=== PATIENT | female | born 1950 | race African-American/Black ===

== ENCOUNTER → 2017-01-30 | Outpatient (CLI) | payer OTHER ==
[2016-12-12 11:38] VITALS: BP 168/99
== END ==
LOC: LAB 10:17
PROVIDERS: ATTEND Nurse Practitioner Family
DX: Z79.01 Long term (current) use of anticoagulants (principal)
CPT/HCPCS: 36415; 85610

== ENCOUNTER → 2017-02-25 | Outpatient (CLI) | payer OTHER ==
[2016-12-12 11:38] VITALS: BP 168/99
== END ==
LOC: LAB 09:17
PROVIDERS: ATTEND Nurse Practitioner Family
DX: Z79.01 Long term (current) use of anticoagulants (principal)
CPT/HCPCS: 36415; 85610

== ENCOUNTER → 2017-03-27 | Outpatient (CLI) | payer OTHER ==
[2016-12-12 11:38] VITALS: BP 168/99
== END ==
LOC: LAB 07:13
PROVIDERS: ATTEND Nurse Practitioner Family
DX: I48.91 Unspecified atrial fibrillation (principal)
CPT/HCPCS: 36415; 85610

== ENCOUNTER → 2017-04-24 | Outpatient (CLI) | payer OTHER ==
[2016-12-12 11:38] VITALS: BP 168/99
== END ==
LOC: LAB 11:03
PROVIDERS: ATTEND Psychiatry & Neurology Neurology
DX: Z51.81 Encounter for therapeutic drug level monitoring (principal); Z79.01 Long term (current) use of anticoagulants
CPT/HCPCS: 36415; 85610

== ENCOUNTER → 2017-05-20 | Outpatient (CLI) | payer OTHER ==
[2016-12-12 11:38] VITALS: BP 168/99
== END ==
LOC: LAB 09:31
PROVIDERS: ATTEND Nurse Practitioner Family
DX: I48.91 Unspecified atrial fibrillation (principal)
CPT/HCPCS: 36415; 85610

== ENCOUNTER → 2017-06-05 | Outpatient (CLI) | payer OTHER ==
[2016-12-12 11:38] VITALS: BP 168/99
[2017-06-05 10:49] LABS: BASOPHILS # (AUTO) 0.1 X10^3/uL (0.0-0.1); EOSINOPHILS # (AUTO) 0.3 x10^3/uL (0.0-0.2); EOSINOPHILS % (AUTO) 4.2 % (0.9-2.9); HEMATOCRIT 38.4 % (36.0-47.0); HEMOGLOBIN 12.9 g/dL (12.0-16.0); LYMPHOCYTES # (AUTO) 2.2 X10^3/uL (1.3-2.9); MEAN CORPUSCULAR HGB CONC 33.6 g/dL (33.0-35.0); MEAN CORPUSCULAR VOLUME 89.2 fL (80.0-100.0); MEAN PLATELET VOLUME 8.3 fL (7.4-11.0); MONOCYTES # (AUTO) 0.4 x10^3/uL (0.3-0.8); MONOCYTES % (AUTO) 6.3 % (0.0-13.0); NEUTROPHILS # (AUTO) 3.4 x10^3/uL (2.2-4.8); NEUTROPHILS % (AUTO) 53.5 % (42.0-75.0); PLATELET COUNT 160 X10^3/uL (150.0-450.0); RED CELL DISTRIBUTION WIDTH 15.3 % (11.6-16.5); WHITE BLOOD COUNT 6.3 X10^3/uL (3.6-10.0)
[2017-06-05 11:03] LABS: CREATININE,URINE 206.12 mg/dL (29-226); MICROALBUMIN,URINE 9.9 mg/L
[2017-06-05 11:11] LABS: ALANINE AMINOTRANSFERASE 19 Units/L (12-78); ALBUMIN 3.6 g/dL (3.4-5.0); ALKALINE PHOSPHATASE 56 Units/L (46-116); ASPARTATE AMINO TRANSFERASE 16 Units/L (15-37); BLOOD UREA NITROGEN 21 mg/dL (7-18); CALCIUM 8.7 mg/dL (8.5-10.1); CARBON DIOXIDE 31.1 mmol/L (21-32); CHLORIDE 108 mmol/L (98-107); CHOLESTEROL 213 mg/dL (0-200); CREATININE 1.21 mg/dL (0.55-1.02); GLUCOSE 92 mg/dL (65-99); HDL CHOLESTEROL 105 mg/dL (40-60); SODIUM 143 mmol/L (136-145); TOTAL PROTEIN 7.6 g/dL (6.4-8.2); TRIGLYCERIDES 55 mg/dL (0-150); eGFR BLACK RACES 57 (>60); eGFR NON BLACK RACES 47 (>60)
== END | disposition home or self-care (01) | DRG 293 ==
LOC: LAB 10:17
PROVIDERS: ATTEND Nurse Practitioner Family
DX: I13.0 Hypertensive heart and chronic kidney disease with heart failure and stage 1 through stage 4 chronic kidney disease, or unspecified chronic kidney disease (principal); N18.3 Chronic kidney disease, stage 3 (moderate); E78.4 Other hyperlipidemia
CPT/HCPCS: 36415; 80053; 80061; 82043; 84100; 85025

== ENCOUNTER → 2017-06-11 | Outpatient (CLI) | payer OTHER ==
[2016-12-12 11:38] VITALS: BP 168/99
--- NOTE | 2017-06-11 15:06 | MG ---
HISTORY: SCREENING Comparison: Multiple priors dating back to August 30, 2010 FINDINGS: Bilateral CC and MLO projections of the right and left breast were obtained. Heterogeneously dense fibroglandular tissue is seen to be present without suspicious interval change. No significant arch itectural distortion, mass or clustered microcalcifications can be observed to suggest malignancy. No skin thickening or nipple retraction is appreciated. No pathological lymphadenopathy can be magui ntified. There are stable benign appearing bilateral axillary lymph nodes noted. IMPRESSION: NO RADIOGRAPHIC EVIDENCE OF MALIGNANCY. ACR CATEGORY I - NEGATIVE EXAM. FOLLOW-UP EXAM 1 YEAR. Diagnostic CAD was utilized and reviewed. * 0 (ZERO) - ASSESSMENT INCOMPLETE; ADDITIONAL IMAGING IS NEEDED. * 1/ (ONE) - NEGATIVE. * 2/II (TWO) - BENIGN FINDINGS. * 3/III (THREE) - PROBABLY BENIGN FINDING; SHORT INTERVAL FOLLOW-UP SUGGESTED. * 4/IV (FOUR) - SUSPICIOUS ABNORMALITY; BIOPSY SHOULD BE CONSIDERED. * 5/V (FIVE) - HIGHLY SUSPICIOUS OF MALIGNANCY; BIOPSY SHOULD BE PERFORMED. A NEGATIVE X-RAY REPORT SHOULD NOT DELAY BIOPSY IF A DOMINANT OR CLINICALLY SUSPICIOUS MASS IS PRESENT; 4 TO 8 PERCENT OF CANCERS ARE NOT IDENTIFIED BY X-RAY. A NEG ATIVE REPORT MAY REINFORCE THE CLINICAL IMPRESSION. ADENOSIS AND DENSE BREASTS MAY OBSCURE AN UNDER LYING NEOPLASM. Reported By:
== END ==
LOC: RAD 10:14
PROVIDERS: ATTEND Nurse Practitioner Family
DX: Z12.31 Encounter for screening mammogram for malignant neoplasm of breast (principal)
CPT/HCPCS: 77067

== ENCOUNTER → 2017-06-19 | Outpatient (CLI) | payer OTHER ==
[2016-12-12 11:38] VITALS: BP 168/99
== END | disposition home or self-care (01) | DRG 950 ==
LOC: LAB 13:17
PROVIDERS: ATTEND Nurse Practitioner Family
DX: Z51.81 Encounter for therapeutic drug level monitoring (principal); Z79.01 Long term (current) use of anticoagulants
CPT/HCPCS: 36415; 85610

== ENCOUNTER → 2017-07-12 | Outpatient (CLI) | payer OTHER ==
[2016-12-12 11:38] VITALS: BP 168/99
== END ==
LOC: LAB 09:31
PROVIDERS: ATTEND Nurse Practitioner Family
DX: Z51.81 Encounter for therapeutic drug level monitoring (principal)
CPT/HCPCS: 36415; 85610

== ENCOUNTER → 2017-09-05 | Outpatient (CLI) | payer OTHER ==
[2016-12-12 11:38] VITALS: BP 168/99
[2017-09-05 10:10] LABS: ALANINE AMINOTRANSFERASE 16 Units/L (12-78); ALBUMIN 3.4 g/dL (3.4-5.0); ALKALINE PHOSPHATASE 62 Units/L (46-116); ASPARTATE AMINO TRANSFERASE 18 Units/L (15-37); BLOOD UREA NITROGEN 20 mg/dL (7-18); CALCIUM 8.7 mg/dL (8.5-10.1); CARBON DIOXIDE 27.8 mmol/L (21-32); CHLORIDE 107 mmol/L (98-107); CREATININE 1.31 mg/dL (0.55-1.02); SODIUM 141 mmol/L (136-145); TOTAL PROTEIN 7.1 g/dL (6.4-8.2); eGFR BLACK RACES 52 (>60); eGFR NON BLACK RACES 43 (>60)
[2017-09-05 10:17] LABS: BASOPHILS % (AUTO) 0.7 % (0.2-1.0); EOSINOPHILS # (AUTO) 0.3 x10^3/uL (0.0-0.2); EOSINOPHILS % (AUTO) 4.1 % (0.9-2.9); HEMOGLOBIN 12.7 g/dL (12.0-16.0); LYMPHOCYTES # (AUTO) 1.8 X10^3/uL (1.3-2.9); LYMPHOCYTES % (AUTO) 29.8 % (21.0-51.0); MEAN CORPUSCULAR HEMOGLOBIN 29.3 pg (27.0-34.0); MEAN CORPUSCULAR HGB CONC 32.5 g/dL (33.0-35.0); MEAN CORPUSCULAR VOLUME 89.9 fL (80.0-100.0); MEAN PLATELET VOLUME 8.6 fL (7.4-11.0); MONOCYTES # (AUTO) 0.5 x10^3/uL (0.3-0.8); MONOCYTES % (AUTO) 8.4 % (0.0-13.0); NEUTROPHILS # (AUTO) 3.5 x10^3/uL (2.2-4.8); PLATELET COUNT 146 X10^3/uL (150.0-450.0); RED BLOOD COUNT 4.34 X10^6/uL (3.5-5.4); RED CELL DISTRIBUTION WIDTH 14.4 % (11.6-16.5); WHITE BLOOD COUNT 6.1 X10^3/uL (3.6-10.0)
== END ==
LOC: LAB 09:17
PROVIDERS: ATTEND Nurse Practitioner Adult Health
DX: I10 Essential (primary) hypertension (principal)
CPT/HCPCS: 36415; 80053; 85025

== ENCOUNTER → 2017-09-12 | Outpatient (CLI) | payer OTHER ==
[2016-12-12 11:38] VITALS: BP 168/99
== END ==
LOC: LAB 09:19
PROVIDERS: ATTEND Nurse Practitioner Family
DX: Z79.01 Long term (current) use of anticoagulants (principal)
CPT/HCPCS: 36415; 85610

== ENCOUNTER → 2017-10-22 | Outpatient (CLI) | payer OTHER ==
[2016-12-12 11:38] VITALS: BP 168/99
== END ==
LOC: LAB 09:07
PROVIDERS: ATTEND Nurse Practitioner Family
DX: Z51.81 Encounter for therapeutic drug level monitoring (principal)
CPT/HCPCS: 36415; 85610

== ENCOUNTER → 2017-10-31 | Outpatient (CLI) | payer OTHER ==
[2016-12-12 11:38] VITALS: BP 168/99
== END ==
LOC: RAD 13:25
PROVIDERS: ATTEND Physician Assistant
DX: R01.1 Cardiac murmur, unspecified (principal)
CPT/HCPCS: 93306

== ENCOUNTER → 2017-12-16 | Outpatient (CLI) | payer OTHER ==
[2016-12-12 11:38] VITALS: BP 168/99
[2017-12-16 10:32] LABS: BASOPHILS # (AUTO) 0.1 X10^3/uL (0.0-0.1); BASOPHILS % (AUTO) 0.8 % (0.2-1.0); EOSINOPHILS # (AUTO) 0.1 x10^3/uL (0.0-0.2); EOSINOPHILS % (AUTO) 1.8 % (0.9-2.9); HEMATOCRIT 38.8 % (36.0-47.0); HEMOGLOBIN 12.9 g/dL (12.0-16.0); LYMPHOCYTES # (AUTO) 1.9 X10^3/uL (1.3-2.9); LYMPHOCYTES % (AUTO) 29.6 % (21.0-51.0); MEAN CORPUSCULAR HEMOGLOBIN 29.1 pg (27.0-34.0); MEAN CORPUSCULAR HGB CONC 33.2 g/dL (33.0-35.0); MEAN CORPUSCULAR VOLUME 87.9 fL (80.0-100.0); MEAN PLATELET VOLUME 8.3 fL (7.4-11.0); MONOCYTES # (AUTO) 0.4 x10^3/uL (0.3-0.8); MONOCYTES % (AUTO) 6.1 % (0.0-13.0); NEUTROPHILS # (AUTO) 3.9 x10^3/uL (2.2-4.8); NEUTROPHILS % (AUTO) 61.7 % (42.0-75.0); PLATELET COUNT 187 X10^3/uL (150.0-450.0); RED BLOOD COUNT 4.42 X10^6/uL (3.5-5.4); RED CELL DISTRIBUTION WIDTH 14.9 % (11.6-16.5); WHITE BLOOD COUNT 6.4 X10^3/uL (3.6-10.0)
[2017-12-16 10:41] LABS: BLOOD UREA NITROGEN 15 mg/dL (7-18); CALCIUM 8.9 mg/dL (8.5-10.1); CARBON DIOXIDE 27.7 mmol/L (21-32); CHLORIDE 107 mmol/L (98-107); CREATININE 1.06 mg/dL (0.55-1.02); SODIUM 140 mmol/L (136-145); eGFR BLACK RACES > 60 (>60); eGFR NON BLACK RACES 55 (>60)
== END ==
LOC: LAB 09:45
PROVIDERS: ATTEND Internal Medicine Cardiovascular Disease
DX: I48.91 Unspecified atrial fibrillation (principal)
CPT/HCPCS: 36415; 80048; 85025

== ENCOUNTER → 2018-02-13 | Outpatient (CLI) | payer OTHER ==
[2016-12-12 11:38] VITALS: BP 168/99
[2018-02-13 08:55] LABS: BASOPHILS # (AUTO) 0.1 X10^3/uL (0.0-0.1); EOSINOPHILS # (AUTO) 0.2 x10^3/uL (0.0-0.2); EOSINOPHILS % (AUTO) 2.7 % (0.9-2.9); HEMATOCRIT 39.7 % (36.0-47.0); HEMOGLOBIN 13.2 g/dL (12.0-16.0); LYMPHOCYTES # (AUTO) 1.9 X10^3/uL (1.3-2.9); LYMPHOCYTES % (AUTO) 31.3 % (21.0-51.0); MEAN CORPUSCULAR HEMOGLOBIN 29.2 pg (27.0-34.0); MEAN CORPUSCULAR HGB CONC 33.2 g/dL (33.0-35.0); MEAN CORPUSCULAR VOLUME 88.2 fL (80.0-100.0); MEAN PLATELET VOLUME 8.3 fL (7.4-11.0); MONOCYTES # (AUTO) 0.4 x10^3/uL (0.3-0.8); MONOCYTES % (AUTO) 5.9 % (0.0-13.0); NEUTROPHILS # (AUTO) 3.6 x10^3/uL (2.2-4.8); NEUTROPHILS % (AUTO) 59.1 % (42.0-75.0); PLATELET COUNT 177 X10^3/uL (150.0-450.0); RED BLOOD COUNT 4.51 X10^6/uL (3.5-5.4); RED CELL DISTRIBUTION WIDTH 14.4 % (11.6-16.5); WHITE BLOOD COUNT 6.1 X10^3/uL (3.6-10.0)
[2018-02-13 09:02] LABS: ALBUMIN 3.6 g/dL (3.4-5.0); BLOOD UREA NITROGEN 12 mg/dL (7-18); CALCIUM 8.5 mg/dL (8.5-10.1); CARBON DIOXIDE 25.5 mmol/L (21-32); CHLORIDE 107 mmol/L (98-107); CHOL/HDL RATIO 2.4 (0.0-5.0); CHOLESTEROL 225 mg/dL (0-200); CREATININE 1.05 mg/dL (0.55-1.02); HDL CHOLESTEROL 94 mg/dL (40-60); PHOSPHORUS 3.1 mg/dL (2.6-4.7); SODIUM 144 mmol/L (136-145); TRIGLYCERIDES 50 mg/dL (0-150); URIC ACID 4.4 mg/dL (2.6-6.0); eGFR BLACK RACES > 60 (>60); eGFR NON BLACK RACES 55 (>60)
== END ==
LOC: LAB 08:18
PROVIDERS: ATTEND Internal Medicine
DX: I12.9 Hypertensive chronic kidney disease with stage 1 through stage 4 chronic kidney disease, or unspecified chronic kidney disease (principal); N18.3 Chronic kidney disease, stage 3 (moderate)
CPT/HCPCS: 36415; 80061; 80069; 84550; 85025

== ENCOUNTER 2018-03-25 15:07 | Emergency (ER) | payer OTHER ==
[2018-03-25 15:12] VITALS: BP 159/93; BMI 32.7
--- NOTE | 2018-03-25 17:51 | DR.URIAD ---
HPI - Time Seen Time seen: 18:00 - PCP Primary Care Physician: tariq - Complaint Chief Complaint Doctors Comments: Patient admits to cough and congestion for five days. Denies fever, vomiting or diarrhea. Chief Complaint:: pt stated she has been cold and hot she stated her sinuses might be bad. - Source History Provided: Patient - Mode of Arrival Mode of Arrival: Ambulatory - Timing Onset of Chief Complaint: 03/22/18 PMH - PMH Past Medical History: Yes Past Medical History: Hypertension Past Surgical History: Yes Surgical History: Hysterectomy - Family History History of Family Medical Conditions: Yes Family Medical History: Diabetes Mellitus, Cancer, Hypertension - Social History Does patient currently use any type of tobacco product: No Have you used tobacco products in the last 12 months: No Type of Tobacco Use: None Does any household member use tobacco: No Alcohol Use: None Do you use any recreational Drugs:: No Lives With: Family Lives Where: Home - infectious screening In the last 2 months have you had wt loss of >10#?: NO Have you had fever, night sweats or hemotysis?: No Have you traveled outside the country in the last 6 months?: No Isolation: Standard ROS - Review of Systems Eyes: No Symptoms Reported ENTM: No Symptoms Reported Respiratoy: Dry Cough Cardiovascular: No Symptoms Reported Gastrointestinal/Abdominal: No Symptoms Reported Genitourinary: No Symptoms Reported Neurological: No Symptoms Reported Musculoskeletal: No Symptoms Reported Integumentary: No Symptoms Reported Hematologic/Lymphatic: No Symptoms Reported Endocrine: No Symptoms Reported Psychiatric: No Symptoms Reported All Other Systems: Reviewed and Negative PE - Vital Signs Vitals: Temperature 99.6 F Pulse Rate 79 Respiratory Rate 16 Blood Pressure [Left Arm] 133/95 Blood Pressure 159/93 O2 Sat by Pulse Oximetry 99 - General Limitations: No Limitations General Appearance: Alert, In No Apparent Distress - Head Head Exam: Normal Inspection, Atraumatic - Eyes Eye exam: Normal Appearance, PERRL, EOMI - ENT ENT Exam: Normal Exam External Ear Exam: Normal External Inspection TM/Canal Exam: Bilateral Normal Nose Exam: Other (rhinorrhea) Nasal Speculum Exam: Bilateral Normal Mouth Exam: Normal Inspection Throat Exam: Normal Inspection - Neck Neck Exam: Normal Inspection, Full ROM - Chest Chest Inspection: Normal Inspection - Respiratory Respiratory Exam: Normal Lung Sounds Bilat Respiratory Exam: Bilateral Clear to Auscultation - Cardiovascular Cardiovascular Exam: Regular Rate, Normal Rhythm - Abdominal Exam Abdominal Exam: Normal Inspection Abdominal Tenderness: negative: RUQ, RLQ, LUQ, LLQ, Epigastrium, Suprapubic, Diffuse, Mild, Moderate, Severe, Other - Extremeties Extremities Exam: Normal Inspection, Full ROM - Back Back Exam: Normal Inspection, Full ROM - Neurologic Neurological Exam: Alert, Oriented X3, CN II-XII Intact - Psychiatric Psychiatric Exam: Normal Affect - Skin Skin Exam: Warm, Dry, Intact Course - Reevaluation 1st: Unchanged - Diagnosis Discharge Problem: Upper respiratory infection Qualifiers: URI type: unspecified viral URI Qualified Code(s): J06.9 - Acute upper respiratory infection, unspecified - Discharge Plan Condition: Stable - Follow ups/Referrals Follow ups/Referrals: JOURDAN HARDY [Primary Care Provider] - 3 days - Instructions
== END 2018-03-25 18:26 | disposition home or self-care (01) ==
LOC: ER 15:15
DX: J06.9 Acute upper respiratory infection, unspecified (principal)
CPT/HCPCS: 99281; 99282

== ENCOUNTER 2019-01-13 13:31 | Observation (INO) ==
[2019-01-13] MEDS ORDERED: DECADRON INJ IM ONE (14:10)
[2019-01-13] MEDS ORDERED: VISTARIL PO ONE ×2 (14:10→14:15)
[2019-01-13] MEDS ORDERED: DECADRON INJ ONE (14:14)
--- NOTE | 2019-01-13 14:19 | DR.ALLERGY ---
HPI Time Seen Time Seen by Provider: 01/13/19 14:10 PCP Primary Care Physician: Ruby HARDY HPI Comment HPI Comment: 68 YR OLD FEMALE WITH HISTORY OF HYPERTENSION, DYSLIPIDEMIA AND ARTHRITIS PRESENTS WITH FACIAL AND UPPER LIP AND TONGUE SWELLING WHICH SHE NOTED WHEN SHE WOKE UP THIS MORNING. Complaint/Symptoms Chief Complaint Doctors Comments: FACIAL AND UPPER LIP SWELLING. Chief Complaint:: PT C/O FACIAL SWELLING (TOP LIP AND TOUNGE). PT STATES SHE WOKE UP WITH THE SWELLING THIS MORNING. PT STATES HER TOUNGE IS SWELLING SHE FEELS LIKE IT IS STAYING THE SAME. Source History Provided: Patient Mode of Arrival Mode of Arrival: Ambulatory Timing Onset of Chief Complaint: 01/13/19 Came on: Suddenly Context Exposed to: Unknown Developed: Facial swelling and Other (comment) (TONGUE SWOLLEN.) History of: Prior similar episodes (SIMILAR EPISODE PREVIOUSLY DUE TO LISINOPRIL.) Location Location: Face, Lips (UPPER LIP.) and Tongue Severity SOB: None Swallowing: Moderate Rash: None Pruritis: None Modifying factors Improves: Nothing Associated signs and symptoms Associated signs and symptoms: None PMH PMH Past Medical History: Yes Past Medical History: Arthritis, CHF, Dyslipidemia and Hypertension Past Surgical History: Yes Surgical History: Hysterectomy Family History History of Family Medical Conditions: Yes Family Medical History: Diabetes Mellitus, Cancer, Coronary Artery Disease and Hypertension Social History Does any household member use tobacco: No Alcohol Use: None Do you use any recreational Drugs:: No Lives With: Family Lives Where: Home infectious screening In the last 2 months have you had wt loss of >10#?: NO Have you had fever, night sweats or hemotysis?: No Have you traveled outside the country in the last 6 months?: No Isolation: Standard ROS Review of Systems Constitutional: No Symptoms Reported Eyes: Other (FACE SWOLLEN AND RT PERIORBITAL EDEMA.) ENTM: No Symptoms Reported and Mouth Pain (UPPER LIP SWOLLEN.) Respiratoy: No Symptoms Reported Cardiovascular: No Symptoms Reported Gastrointestinal/Abdominal: No Symptoms Reported Genitourinary: No Symptoms Reported Neurological: No Symptoms Reported Musculoskeletal: No Symptoms Reported Integumentary: No Symptoms Reported Hematologic/Lymphatic: No Symptoms Reported Endocrine: No Symptoms Reported Psychiatric: No Symptoms Reported All Other Systems: Reviewed and Negative PE Vitals Vital Signs: Temp Pulse Pulse Resp BP BP Pulse Ox 01/14/19 08:00 98.1 F 76 18 123/75 97 03/06/19 04:00 97.6 F 75 20 111/60 94 L 01/14/19 00:00 97.9 F 96 H 20 140/73 98 01/13/19 20:45 98.2 F 107 H 20 163/91 94 L 01/13/19 20:05 99 H 18 154/90 98 01/13/19 19:30 91 H 162/92 96 01/13/19 19:00 77 143/86 95 01/13/19 18:49 96 H 158/96 95 01/13/19 17:30 85 20 181/87 100 01/13/19 13:31 97.6 F 99 H 20 135/92 97 10/20/18 14:58 151/94 151/94 Constitutional Limitations: No Limitations General Appearance: Alert and In No Apparent Distress Head Head Exam: Other (FACIAL SWELLING, RT GREATED THAN LEFT.) Eyes Eye exam: Other (PERIORBITAL EDEMA RR GREATER THAN LT.) ENT ENT Exam: Normal External Ear Exam and Other (TONGUE SWOLLEN, THROAT NO VISIBLE SWELLING.) Mouth Exam: Normal Inspection Throat Exam: Normal Inspection Neck Neck Exam: Normal Inspection Chest Chest Inspection: Normal Inspection Respiratory Respiratory Exam: Normal Lung Sounds Bilat Respiratory Exam: Bilateral: Rhonchi and Lower: Rhonchi Cardiovascular Cardiovascular Exam: Regular Rate and Normal Rhythm Abdominal Exam Abdominal Exam: Normal Inspection, Normal Bowel Sounds and Soft Extremities Extremities Exam: Normal Inspection and Edema (ONE PLUS EDEMA.) Back Back Exam: Normal Inspection Neurologic Neurological Exam: Alert and Oriented X3 Psychiatric Psychiatric Exam: Normal Affect and Normal Mood Skin Skin Exam: Warm, Dry, Intact and Normal Color MDM Differential Diagnosis Differential diagnosis: Angioedema (ALLERGIC REACTION.) COURSE Treatment Treatment: SEE ORDERS. ROR Labs Reviewed Laboratory Results Reviewed?: Yes Result Diagrams: 01/14/19 04:36 01/14/19 04:36 Laboratory: WBC 8.4 X10^3/uL (3.6-10.0) 01/14/19 04:36 RBC 4.71 X10^6/uL (3.5-5.4) 01/14/19 04:36 Hgb 14.0 g/dL (12.0-16.0) 01/14/19 04:36 Hct 42.9 % (36.0-47.0) 01/14/19 04:36 MCV 91.0 fL (80.0-100.0) 01/14/19 04:36 MCH 29.7 pg (27.0-34.0) 01/14/19 04:36 MCHC 32.6 g/dL (33.0-35.0) L 01/14/19 04:36 RDW 15.1 % (11.6-16.5) 01/14/19 04:36 Plt Count 212 X10^3/uL (150.0-450.0) 01/14/19 04:36 MPV 8.6 fL (7.4-11.0) 01/14/19 04:36 Neut % (Auto) 86.9 % (42.0-75.0) H 01/14/19 04:36 Lymph % (Auto) 12.0 % (21.0-51.0) L 01/14/19 04:36 [place] % (Auto) 0.8 % (0.0-13.0) 01/14/19 04:36 Eos % (Auto) 0.0 % (0.9-2.9) L 01/14/19 04:36 Baso % (Auto) 0.3 % (0.2-1.0) 01/14/19 04:36 Neut # (Auto) 7.3 x10^3/uL (2.2-4.8) H 01/14/19 04:36 Lymph # (Auto) 1.0 X10^3/uL (1.3-2.9) L 01/14/19 04:36 [place] # (Auto) 0.1 x10^3/uL (0.3-0.8) L 01/14/19 04:36 Eos # (Auto) 0.0 x10^3/uL (0.0-0.2) 01/14/19 04:36 Baso # (Auto) 0.0 X10^3/uL (0.0-0.1) 01/14/19 04:36 Absolute Nucleated RBC 0.1 /100WBC 01/14/19 04:36 INR Target Range - 01/13/19 20:24 INR 1.21 (0.8-1.3) 01/13/19 20:24 APTT 32.4 SECONDS (22.9-36.5) 01/13/19 20:24 PTT Comment - 01/13/19 20:24 Sodium 141 mmol/L (136-145) 01/14/19 04:36 Corrected Sodium 142 mmol/L (136-145) 01/14/19 04:36 Potassium 4.0 mmol/L (3.5-5.1) 01/14/19 04:36 Chloride 105 mmol/L (98-107) 01/14/19 04:36 Carbon Dioxide 26.6 mmol/L (21-32) 01/14/19 04:36 BUN 21 mg/dL (7-18) H 01/14/19 04:36 Creatinine 1.34 mg/dL (0.55-1.02) H 01/14/19 04:36 Est GFR (MDRD) Af Amer 50 (>60) L 01/14/19 04:36 Est GFR (MDRD) Non-Af 42 (>60) L 01/14/19 04:36 Glucose 137 mg/dL (65-99) H 01/14/19 04:36 Calcium 9.1 mg/dL (8.5-10.1) 01/14/19 04:36 Corrected Calcium TNP 01/14/19 04:36 Total Bilirubin 0.30 mg/dL (0.2-1.0) 01/14/19 04:36 AST 16 Units/L (15-37) 01/14/19 04:36 ALT 19 Units/L (12-78) 01/14/19 04:36 Alkaline Phosphatase 83 Units/L (46-116) 01/14/19 04:36 Total Protein 7.7 g/dL (6.4-8.2) 01/14/19 04:36 Albumin 3.4 g/dL (3.4-5.0) 01/14/19 04:36 Globulin 4.3 g/dL (2.5-4.5) 01/14/19 04:36 Albumin/Globulin Ratio 0.8 Ratio (1.1-2.1) L 01/14/19 04:36 Triglycerides 17 mg/dL (0-150) 01/14/19 04:36 Cholesterol 205 mg/dL (0-200) H 01/14/19 04:36 LDL Cholesterol, Calc 84 mg/dL (0-100) 01/14/19 04:36 HDL Cholesterol 118 mg/dL (40-60) H 01/14/19 04:36 Cholesterol/HDL Ratio 1.7 (0.0-5.0) 01/14/19 04:36
[2019-01-13] MEDS ORDERED: BENADRYL INJ 50 MG VIAL IVP ONE (15:36)
[2019-01-13] MEDS ORDERED: BENADRYL INJ 50 MG VIAL ONE (15:38)
[2019-01-13] MEDS ORDERED: ZANTAC INJ 50 MG in NS 50 ML IV 50 ML IV ONE (16:58)
[2019-01-13] MEDS ORDERED: SOLU-Medrol 125 MG VIAL IVP ONE (16:58)
[2019-01-13] MEDS ORDERED: SOLU-Medrol 125 MG VIAL ONE (17:01)
[2019-01-13] MEDS ORDERED: ZANTAC INJ ONE (17:01)
[2019-01-13] MEDS ORDERED: NS 100 ML IV 100 ML IV ONE (17:10)
[2019-01-13 20:34] LABS: BASOPHILS % (AUTO) 0.3 % (0.2-1.0); EOSINOPHILS % (AUTO) 0.1 % (0.9-2.9); HEMOGLOBIN 14.5 g/dL (12.0-16.0); LYMPHOCYTES # (AUTO) 0.7 X10^3/uL (1.3-2.9); LYMPHOCYTES % (AUTO) 9.2 % (21.0-51.0); MEAN CORPUSCULAR HEMOGLOBIN 29.9 pg (27.0-34.0); MEAN CORPUSCULAR HGB CONC 33.6 g/dL (33.0-35.0); MEAN PLATELET VOLUME 8.3 fL (7.4-11.0); MONOCYTES # (AUTO) 0 x10^3/uL (0.3-0.8); MONOCYTES % (AUTO) 0.5 % (0.0-13.0); NEUTROPHILS # (AUTO) 6.7 x10^3/uL (2.2-4.8); NEUTROPHILS % (AUTO) 89.9 % (42.0-75.0); PLATELET COUNT 197 X10^3/uL (150.0-450.0); RED BLOOD COUNT 4.84 X10^6/uL (3.5-5.4); RED CELL DISTRIBUTION WIDTH 15.1 % (11.6-16.5); WHITE BLOOD COUNT 7.4 X10^3/uL (3.6-10.0)
[2019-01-13 20:44] LABS: ALANINE AMINOTRANSFERASE 20 Units/L (12-78); ALBUMIN 3.8 g/dL (3.4-5.0); ALKALINE PHOSPHATASE 88 Units/L (46-116); ASPARTATE AMINO TRANSFERASE 19 Units/L (15-37); BLOOD UREA NITROGEN 16 mg/dL (7-18); CALCIUM 9.2 mg/dL (8.5-10.1); CARBON DIOXIDE 25.9 mmol/L (21-32); CHLORIDE 104 mmol/L (98-107); COR NA(FOR HYPERGLY) 142 mmol/L (136-145); CREATININE 1.19 mg/dL (0.55-1.02); SODIUM 141 mmol/L (136-145); TOTAL PROTEIN 8.2 g/dL (6.4-8.2); eGFR NON BLACK RACES 48 (>60)
[2019-01-13] MEDS: NS 1000 ML 1,000 ML IV SCH (21:40)
[2019-01-13 21:56] VITALS: BMI 32.2
[2019-01-14 05:25] LABS: BASOPHILS % (AUTO) 0.3 % (0.2-1.0); HEMATOCRIT 42.9 % (36.0-47.0); MEAN CORPUSCULAR HEMOGLOBIN 29.7 pg (27.0-34.0); MEAN CORPUSCULAR HGB CONC 32.6 g/dL (33.0-35.0); MEAN PLATELET VOLUME 8.6 fL (7.4-11.0); MONOCYTES # (AUTO) 0.1 x10^3/uL (0.3-0.8); MONOCYTES % (AUTO) 0.8 % (0.0-13.0); NEUTROPHILS # (AUTO) 7.3 x10^3/uL (2.2-4.8); NEUTROPHILS % (AUTO) 86.9 % (42.0-75.0); PLATELET COUNT 212 X10^3/uL (150.0-450.0); RED BLOOD COUNT 4.71 X10^6/uL (3.5-5.4); RED CELL DISTRIBUTION WIDTH 15.1 % (11.6-16.5); WHITE BLOOD COUNT 8.4 X10^3/uL (3.6-10.0)
[2019-01-14 05:47] LABS: ALANINE AMINOTRANSFERASE 19 Units/L (12-78); ALBUMIN 3.4 g/dL (3.4-5.0); ALKALINE PHOSPHATASE 83 Units/L (46-116); ASPARTATE AMINO TRANSFERASE 16 Units/L (15-37); BLOOD UREA NITROGEN 21 mg/dL (7-18); CALCIUM 9.1 mg/dL (8.5-10.1); CARBON DIOXIDE 26.6 mmol/L (21-32); CHLORIDE 105 mmol/L (98-107); CHOL/HDL RATIO 1.7 (0.0-5.0); CHOLESTEROL 205 mg/dL (0-200); COR NA(FOR HYPERGLY) 142 mmol/L (136-145); CREATININE 1.34 mg/dL (0.55-1.02); HDL CHOLESTEROL 118 mg/dL (40-60); SODIUM 141 mmol/L (136-145); TOTAL PROTEIN 7.7 g/dL (6.4-8.2); TRIGLYCERIDES 17 mg/dL (0-150); eGFR NON BLACK RACES 42 (>60)
[2019-01-14] MEDS: NS 1000 ML 1,000 ML IV SCH ×2 (19:16→23:03)
--- NOTE | 2019-01-14 20:12 | DR.H&P ---
H&P - History & Physical for Day of: H&P Date: 01/13/19 - Chief Complaint Chief Complaint: FACIAL SWELLING - History of Present Illness History of Present Illness: IS A 68 YEAR OLD PATIENT OF [facility] WHO PRESENTED TO THE ER WITH COMPLAINTS OF FACIAL SWELLING. SHE REPORTS WAKING UP WITH THE SWELLING THIS MORNING. SHE DENIES IMPROVEMENT THROUGHOUT THE DAY. SHE IS NOTED WITH TOP LIP AND TONGUE SWELLING WELL PERIORBITAL EDEMA. SHE REPORTS A HISTORY OF HYPERTENSION, DYSLIPIDEMIA, AND ARTHRITIS. SHE HAS HAD AN EPISODE LIKE THIS BEFORE WHEN SHE WAS TAKING LISINOPRIL. SHE DENIES SHORTNESS OF BREATH. ON ARRIVAL, VITALS WERE 97.6-99-20-97%-135/92. LABS WERE OBTAINED. ABNORMAL LAB VALUES INCLUDE THE FOLLOWING: CREATININE 1.19, GLUCOSE 128. SHE WAS GIVEN ZANTAC 50MG IV X 1, SOLU-MEDROL 125MG IV X 1, BENADRYL 50MG IV X 1, VISTARIL 25MG PO X 1, ANS DECADRON 4MG IM X 1 IN THE ER. SHE WAS ADMITTED FOR FURTHER EVALUATION OF ANGIOEDEMA AND ALLERGIC REACTION. SHE WAS STARTED ON NORMAL SALINE AT [facility]. WE PLAN TO FOLLOW UP WITH AM LABS AND CONTINUE TO MONITOR. - Past Medical History Past Medical History: Hypertension, Dyslipidemia, Arthritis, CHF - Past Surgical History Surgical History: Hysterectomy - Family History Family Medical History: Diabetes Mellitus, Cancer, Coronary Artery Disease, Hypertension - Social History Does any household member use tobacco: No Alcohol Use: None Drug Use: None - Medications Home Medications: MRS AQUINO Allergy (Unknown, Uncoded 01/13/19 21:57) TOMATO Allergy (Unknown, Uncoded 01/13/19 21:57) CONTINUE taking the following medications multivitamin [Multiple Vitamins] 1 tab PO QDAY 01/14/19 [History] warfarin 4 mg PO QDAY 01/14/19 [History] - Review of Systems Constitutional: No Symptoms Reported Eyes: See HPI (SWELLING ) ENT: See HPI, Other (TONGUE AND LIP SWELLING ) Respiratory: No Symptoms Reported Cardiovascular: No Symptoms Reported, Edema (FACIAL EDEMA) Gastrointestinal: No Symptoms Reported Genitourinary: No Symptoms Reported Musculoskeletal: No Symptoms Reported Skin: No Symptoms Reported Neurological: No Symptoms Reported - Physical Exam Vital Signs: Temperature 97.7 F Pulse Rate [Left Radial] 87 Pulse Rate 99 Respiratory Rate 20 Blood Pressure [Left Arm] 135/79 Blood Pressure 135/92 O2 Sat by Pulse Oximetry 98 Oriented: Normal Eyes: Other (PERIORBITAL EDEMA ) Ear: Normal Nose: Normal Throat: Normal Respiratory: Diminished Throughout Cardiovascular: Edema (PERIORBITAL/ANGIOEDEMA ) : Normal Auscultation: Bowel Sounds: Normal Palpation: Normal Tenderness: Normal Skin: Normal Musculoskeletal: Normal Psychiatric: Normal Mood Description: Calm Affect: Normal Speech Pattern: Clear - Assessment/Plan (1) Angioedema Qualifiers: Encounter type: initial encounter Qualified Code(s): T78.3XXA - Angioneurotic edema, initial encounter Status: Acute Plan: ADMIT, NORMAL SALINE AT KVO, CONTINUE TO MONITOR (2) Periorbital edema Status: Acute - Allergies Allergies/Adverse Reactions: Allergies Allergy/AdvReac Type Severity Reaction Status Date / Time MRS AQUINO Allergy Unknown Uncoded 01/13/19 21:57 TOMATO Allergy Unknown Uncoded 01/13/19 21:57
[2019-01-15] MEDS: NS 1000 ML 1,000 ML IV SCH (05:07)
[2019-01-15 05:23] LABS: BASOPHILS % (AUTO) 0.3 % (0.2-1.0); EOSINOPHILS % (AUTO) 0.1 % (0.9-2.9); HEMATOCRIT 37.5 % (36.0-47.0); LYMPHOCYTES # (AUTO) 1.9 X10^3/uL (1.3-2.9); LYMPHOCYTES % (AUTO) 13.9 % (21.0-51.0); MEAN CORPUSCULAR HEMOGLOBIN 28.8 pg (27.0-34.0); MEAN CORPUSCULAR HGB CONC 31.8 g/dL (33.0-35.0); MEAN CORPUSCULAR VOLUME 90.6 fL (80.0-100.0); MEAN PLATELET VOLUME 8.5 fL (7.4-11.0); MONOCYTES # (AUTO) 0.7 x10^3/uL (0.3-0.8); MONOCYTES % (AUTO) 5.5 % (0.0-13.0); NEUTROPHILS # (AUTO) 10.9 x10^3/uL (2.2-4.8); NEUTROPHILS % (AUTO) 80.2 % (42.0-75.0); PLATELET COUNT 195 X10^3/uL (150.0-450.0); RED BLOOD COUNT 4.14 X10^6/uL (3.5-5.4); RED CELL DISTRIBUTION WIDTH 15.3 % (11.6-16.5); WHITE BLOOD COUNT 13.6 X10^3/uL (3.6-10.0)
[2019-01-15 05:35] LABS: ALBUMIN 2.9 g/dL (3.4-5.0); CALCIUM 8.6 mg/dL (8.5-10.1); CARBON DIOXIDE 26.4 mmol/L (21-32); COR CA(FOR HYPOALB) 9.5 mg/dL (8.5-10.1); CREATININE 1.39 mg/dL (0.55-1.02); TOTAL PROTEIN 6.3 g/dL (6.4-8.2)
[2019-01-15 06:17] LABS: HEMOGLOBIN 11.9 g/dL (12.0-16.0)
[2019-01-15 13:24] VITALS: BP 126/75
--- NOTE | 2019-01-21 21:52 | PCM.PROG ---
Progress Note - Progress Note for Day of Date of Exam: 01/14/19 - Subjective Subjective: WAS ADMITTED FOR ANGIOEDEMA AND ALLERGIC REACTION. TODAY, SHE IS ALERT AND ORIENTED, LYING IN BED ON MORNING ROUNDS. SHE CONTINUES WITH FACIAL EDEMA. SHE DENIES SHORTNESS OF BREATH OR ANY OTHER COMPLAINTS THIS MORNING. HER VITALS ARE 98.1-76-18-97%-123/75. LABS WERE OBTAINED. ABNORMAL LAB VALUES INCLUDE THE FOLLOWING: BUN 21, CREATININE 1.34, GLUCOSE 137, CHOLESTEROL 205, HDL 118. TODAY, WE WILL CONTINUE WITH IV HYDRATION AND CONTINUE TO MONITOR SWELLING. OTHERWISE, WE WILL FOLLOW UP WITH AM LABS AND CONTINUE TO MONITOR. - Past Medical Family Social History Past Med/Fam/Surg Hx: No changes since H&P Allergies: Allergies MRS AQUINO Allergy (Unknown, Uncoded 01/13/19 21:57) TOMATO Allergy (Unknown, Uncoded 01/13/19 21:57) - Review of Systems ROS: No change since H&P - Vital Signs and I&O's Vital Signs: Temperature 98.0 F Pulse Rate [Left Radial] 76 Pulse Rate 99 Respiratory Rate 20 Blood Pressure [Right Arm] 126/75 Blood Pressure [Left Arm] 135/79 Blood Pressure 135/92 O2 Sat by Pulse Oximetry 98 - Physical Exam Oriented: Normal Eyes: Other (PERIORBITAL EDEMA ) Ear: Normal Nose: Normal Throat: Normal Respiratory: Generalized, Diminished Cardiovascular: Edema (PERIORBITAL/ANGIOEDEMA ) : Normal Auscultation: Bowel Sounds: Normal Palpation: Normal Tenderness: Normal Skin: Normal Musculoskeletal: Normal Psychiatric: Normal Mood Description: Calm Affect: Normal Speech Pattern: Clear, Appropriate - Laboratory and Diagnostics Result Diagrams: 01/15/19 04:36 01/15/19 04:36 Labs: Laboratory WBC 13.6 X10^3/uL (3.6-10.0) H 01/15/19 04:36 RBC 4.14 X10^6/uL (3.5-5.4) 01/15/19 04:36 Hgb 11.9 g/dL (12.0-16.0) L D 01/15/19 04:36 Hct 37.5 % (36.0-47.0) 01/15/19 04:36 MCV 90.6 fL (80.0-100.0) 01/15/19 04:36 MCH 28.8 pg (27.0-34.0) 01/15/19 04:36 MCHC 31.8 g/dL (33.0-35.0) L 01/15/19 04:36 RDW 15.3 % (11.6-16.5) 01/15/19 04:36 Plt Count 195 X10^3/uL (150.0-450.0) 01/15/19 04:36 MPV 8.5 fL (7.4-11.0) 01/15/19 04:36 Neut % (Auto) 80.2 % (42.0-75.0) H 01/15/19 04:36 Lymph % (Auto) 13.9 % (21.0-51.0) L 01/15/19 04:36 [place] % (Auto) 5.5 % (0.0-13.0) 01/15/19 04:36 Eos % (Auto) 0.1 % (0.9-2.9) L 01/15/19 04:36 Baso % (Auto) 0.3 % (0.2-1.0) 01/15/19 04:36 Neut # (Auto) 10.9 x10^3/uL (2.2-4.8) H 01/15/19 04:36 Lymph # (Auto) 1.9 X10^3/uL (1.3-2.9) 01/15/19 04:36 [place] # (Auto) 0.7 x10^3/uL (0.3-0.8) 01/15/19 04:36 Eos # (Auto) 0.0 x10^3/uL (0.0-0.2) 01/15/19 04:36 Baso # (Auto) 0.0 X10^3/uL (0.0-0.1) 01/15/19 04:36 Absolute Nucleated RBC 0.0 /100WBC 01/15/19 04:36 INR Target Range - 01/13/19 20:24 INR 1.21 (0.8-1.3) 01/13/19 20:24 APTT 32.4 SECONDS (22.9-36.5) 01/13/19 20:24 PTT Comment - 01/13/19 20:24 Sodium 139 mmol/L (136-145) 01/15/19 04:36 Corrected Sodium 140 mmol/L (136-145) 01/15/19 04:36 Potassium 3.7 mmol/L (3.5-5.1) 01/15/19 04:36 Chloride 107 mmol/L (98-107) 01/15/19 04:36 Carbon Dioxide 26.4 mmol/L (21-32) 01/15/19 04:36 BUN 28 mg/dL (7-18) H 01/15/19 04:36 Creatinine 1.39 mg/dL (0.55-1.02) H 01/15/19 04:36 Est GFR (MDRD) Af Amer 48 (>60) L 01/15/19 04:36 Est GFR (MDRD) Non-Af 40 (>60) L 01/15/19 04:36 Glucose 125 mg/dL (65-99) H 01/15/19 04:36 Calcium 8.6 mg/dL (8.5-10.1) 01/15/19 04:36 Corrected Calcium 9.5 mg/dL (8.5-10.1) 01/15/19 04:36 Total Bilirubin 0.20 mg/dL (0.2-1.0) 01/15/19 04:36 AST 10 Units/L (15-37) L 01/15/19 04:36 ALT 15 Units/L (12-78) 01/15/19 04:36 Alkaline Phosphatase 70 Units/L (46-116) 01/15/19 04:36 Total Protein 6.3 g/dL (6.4-8.2) L 01/15/19 04:36 Albumin 2.9 g/dL (3.4-5.0) L 01/15/19 04:36 Globulin 3.4 g/dL (2.5-4.5) 01/15/19 04:36 Albumin/Globulin Ratio 0.9 Ratio (1.1-2.1) L 01/15/19 04:36 Triglycerides 17 mg/dL (0-150) 01/14/19 04:36 Cholesterol 205 mg/dL (0-200) H 01/14/19 04:36 LDL Cholesterol, Calc 84 mg/dL (0-100) 01/14/19 04:36 HDL Cholesterol 118 mg/dL (40-60) H 01/14/19 04:36 Cholesterol/HDL Ratio 1.7 (0.0-5.0) 01/14/19 04:36 - Plan (1) Angioedema Status: Acute Qualifiers: Encounter type: initial encounter Qualified Code(s): T78.3XXA - Angioneur otic edema, initial encounter Plan: ADMIT, NORMAL SALINE AT KVO, CONTINUE TO MONITOR (2) Periorbital edema Status: Acute
== END 2019-01-15 13:00 | disposition home or self-care (01) ==
LOC: ER 13:31 → MED/SURG 13:31
PROVIDERS: ADMIT Internal Medicine; ATTEND Internal Medicine
DX: R73.09 Other abnormal glucose; M13.89 Other specified arthritis, multiple sites; T78.3XXA Angioneurotic edema, initial encounter; Z79.01 Long term (current) use of anticoagulants; T78.49XA Other allergy, initial encounter; E78.2 Mixed hyperlipidemia; R94.4 Abnormal results of kidney function studies; I10 Essential (primary) hypertension
CPT/HCPCS: 36415; 80053; 80061; 85025; 85610; 85730; 94760; 96365; 96367; 96372; 96374; 96375; 99284; A4222; Q0177; G0378; J1100; J1200; J2780; J2930; J7030; J7050